=== PATIENT | male | born 1995 | race Caucasian/White ===

== ENCOUNTER 2023-02-21 19:44 | Emergency (ER) | payer SELFPAY ==
[2023-02-21 19:46] VITALS: BP 117/83; PULSE 74; RESP 18; TEMP 36.8; O2SAT 99
--- NOTE | 2023-02-22 03:10 | PC.NURSE ---
Called for room, no answer.
== END 2023-02-21 19:50 | disposition left against medical advice (07) ==
LOC: ANHED 02-22 04:31
PROVIDERS: PCP Family Medicine
DX: R10.9 Unspecified abdominal pain (principal)
CPT/HCPCS: 99199

== ENCOUNTER 2023-02-25 00:20 | Emergency (ER) | payer OTHER, SELFPAY ==
--- NOTE | ~2023-02-25 | CT_ITS ---
CT of the Abdomen and Pelvis: Indication: Abdominal pain Technique: 2.5 mm axial scans were obtained through the abdomen and pelvis following intravenous adm inistration of 100 cc of Omnipaque 350. Dose reduction technique was used on this scan by utilizing a utomated exposure control and iterative reconstruction technique. The dose-length product (DLP) was 1 026.38 mGy-cm. Findings: Scans through the lung bases are unremarkable. The liver, spleen, pancreas, gallbladder, adrenals and kidneys are within normal limits. No evidence of aortic aneurysm. No lymphadenopathy. No bowel obstruction or bowel wall thickening. There is no evidence to suggest acute appendicitis. Images through the pelvis were performed. Urinary bladder unremarkable. No pelvic mass seen. No ascit es. Impression: No significant abnormalities seen. Reviewed, dictated and finalized at [facility]. [employer] Impression: No significant abnormalities seen.
[2023-02-25 00:25] VITALS: BP 131/64; PULSE 86; RESP 15; TEMP 36.3; O2SAT 100
[2023-02-25 00:49] LABS: Basophils Absolute Auto 0.1 K/mm3 (0.0-0.1); Basophils Percent Auto 0.7 % (0.2-1.2); Eosinophils Absolute Auto 0.6 K/mm3 (0-0.3); Eosinophils Percent Auto 8.4 % (0-4.4); Hematocrit 48.3 % (42.0-52.0); Hemoglobin 16.2 g/dL (14.0-18.0); Immature Granulocyte Absolute 0.04 K/mm3 (0.00-0.031); Immature Granulocyte Percent A 0.5 % (0-0.5); Lymphocytes Absolute Auto 1.24 K/mm3 (0.9-3.2); Lymphocytes Percent Auto 16.2 % (18.3-44.2); Mean Corpuscular HGB Conc 33.5 g/dl (32-36); Mean Corpuscular Hemoglobin 30.2 pg (26-34); Mean Corpuscular Volume 89.9 fl (80-100); Mean Platelet Volume 10.7 fl (7.4-10.4); Monocytes Absolute Auto 0.8 K/mm3 (0.1-0.6); Monocytes Percent Auto 9.8 % (2.6-8.5); Neutrophils Absolute Auto 4.9 K/mm3 (1.3-6.7); Neutrophils Percent Auto 64.4 % (45.5-73.1); Platelet Count Result 217 k/mm3 (150-375); Red Blood Count 5.37 M/mm3 (4.6-6.20); Red Cell Distribution Width 11.9 % (11.5-14.5); White Blood Count 7.6 K/mm3 (4.5-10.0)
[2023-02-25 00:54] LABS: Appearance Urine Clear (Clear); Bacteria Urine None Seen /hpf; Bilirubin Urine Negative (Negative); Color Urine Yellow (Yellow); Glucose Urine UA Negative (Negative); Ketones Urine Trace mg/dL (Negative); Leukocyte Esterase Ur Negative LEU/UL (Negative); Nitrate Urine Negative (Negative); Non Pathogenic Casts 0-2; Protein Urine Negative (Negative); Specific Grav Ur 1.022 (1.001-1.035); Squamous Epithelial Cell Urine None seen /hpf (Few); WBC Urine 0-5 /hpf
[2023-02-25] MEDS: ONDANSETRON INJ 4 MG/2 ML VIAL IV PUSH (00:54)
[2023-02-25] MEDS: SODIUM CHLORIDE 0.9% IV 1,000 ML 999 ML IV CONT (00:54)
[2023-02-25 00:56] LABS: Add Urine Microscopic? YES
[2023-02-25 01:00] LABS: Alanine Aminotransferase 52 U/L (6-50); Albumin Level 4.9 g/dL (3.5-5.1); Alkaline Phosphatase 73 U/L (38-126); Anion Gap 11 mmol/L (8-16); Aspartate Amino Transferase 29 U/L (17-59); Bilirubin,Total 0.8 mg/dL (0.2-1.3); Blood Urea Nitrogen 15 mg/dL (9-20); Calcium 9.4 mg/dL (8.4-10.2); Carbon Dioxide 28 mmol/L (22-30); Chloride 101 mmol/L (98-107); Estimated CRCL calculation 102 ml/min; Estimated Glomerular Filt Rate > 60; Glucose 86 mg/dL (65-110); Lipase 52 U/L (23-300); Potassium 3.9 mmol/L (3.4-5.0); Sodium 140 mmol/L (137-145)
--- NOTE | 2023-02-25 01:38 | ED.GENADULT ---
HPI - General Adult General Chief complaint: Abdominal Pain Stated complaint: abdominal pain Time Seen by Provider: 02/25/23 00:27 History of Present Illness HPI narrative: Patient is a 27-year-old gentleman who presents emergency department with chief complaint of abdominal pain. Patient reports that couple days ago he started having pain in the periumbilical area is localized to the right lower quadrant. Patient reports pain is worse with movement and improved with rest patient reports that he has had decreased appetite denies fever Related Data Allergies Allergy/AdvReac Type Severity Reaction Status Date / Time shellfish derived Allergy Severe Anaphylactic Verified 08/30/21 10:22 Shock Review of Systems Review of Systems: A 10 system review of systems was completed on the patient and is negative except for what is stated in the HPI. Nursing and ancillary documentation was reviewed. [facility] Past Medical History Medical History Allergies Anxiety Asthma Family History Family History Father Hypertension Depression Anxiety Heart disease Mother Anxiety Depression Social History Social History Smoking status: Former smoker Tobacco type: cigarettes Second hand tobacco smoke exposure: No Smoking end date: 09/18/19 Alcohol intake: current Drinks per week: 3 Alcohol use details: whiskey Substance use: former Substance use type: marijuana and other Other substance usage details: [place] in [place] 2016 (ecstasy) Living arrangements: with roommate(s) Occupation/Education: occupation Additional occupation/education comments: [employer] Gender identity (if verbalized by the patient): Male Spiritual care concerns: No Agree to blood products: Yes Exam Narrative: GENERAL: Well-appearing, well-nourished, and in no acute distress. HEAD: Normocephalic, atraumatic. EYES: PERRLA and EOMI. ENT: Nares clear, no rhinorrhea or epistaxis. Mucous membranes moist. NECK: Supple. CHEST: Clear to auscultation. No respiratory distress. HEART: Regular rate and rhythm. No murmur heard. Normal peripheral pulses. ABDOMEN: Soft, Tender in the right lower quadrant, nondistended, normal active bowel sounds. EXTREMITIES: Normal range of motion. No edema. SKIN: Warm, dry, no rash. NEURO: No focal deficits. Alert and oriented x3. PSYCH: Normal mood and affect. Course Vital Signs Vital signs: Vital Signs Temperature 36.3 C L 02/25/23 00:25 Pulse Rate 86 02/25/23 00:25 Respiratory Rate 15 02/25/23 00:25 Blood Pressure 131/64 02/25/23 00:25 Pulse Oximetry 100 02/25/23 00:25 Oxygen Delivery Room Air 02/25/23 00:25 Temperature 36.3 C L 02/25/23 00:25 Pulse Rate 72 02/25/23 02:50 Respiratory Rate 16 02/25/23 02:50 Blood Pressure 99/84 L 02/25/23 02:50 Pulse Oximetry 99 02/25/23 02:50 Oxygen Delivery Room Air 02/25/23 00:25 Medical Decision Making MDM Narrative Medical decision making narrative: differential diagnosis includes appendicitis, diverticulitis, colitis, cholecystitis. Pancreatitis CT scan of the abdomen pelvis was obtained that showed no acute abnormality urinalysis showed no evidence UTI CBC showed a white count that was 7.6 electrolytes were within normal limits Vital Signs Vital Signs: Vital Signs Temperature 36.3 C L 02/25/23 00:25 Pulse Rate 86 02/25/23 00:25 Respiratory Rate 15 02/25/23 00:25 Blood Pressure 131/64 02/25/23 00:25 Pulse Oximetry 100 02/25/23 00:25 Oxygen Delivery Room Air 02/25/23 00:25 Temperature 36.3 C L 02/25/23 00:25 Pulse Rate 72 02/25/23 02:50 Respiratory Rate 16 02/25/23 02:50 Blood Pressure 99/84 L 02/25/23 02:50 Pulse Oximetry 99 02/25/23 02:50 Oxygen Delivery
[2023-02-25 02:50] VITALS: BP 99/84; PULSE 72; RESP 16; O2SAT 99
== END 2023-02-25 03:12 | disposition home or self-care (01) ==
PROVIDERS: Emergency Provider Emergency Medicine; PCP Family Medicine
DX: R10.84 Generalized abdominal pain (principal); F41.9 Anxiety disorder, unspecified; J45.909 Unspecified asthma, uncomplicated
CPT/HCPCS: 36415; 74177; 80053; 81001; 83690; 85025; 96361; 96374; 99284; J2405; J7030; Q9967